=== PATIENT | female | born 1990 | race Caucasian/White ===

== ENCOUNTER 2024-01-16 11:25 | Inpatient (IN) | payer OTHER ==
[~2024-01-16] VITALS: Ht 170.2 cm; Wt 56.7 kg
[2024-01-16 12:26] VITALS: BP 103/74
[2024-01-16] MEDS ORDERED: BETAMETHASONE ACETATE,SOD PHOS 30 MG/5 ML ML IM ONE (12:30)
[2024-01-16] MEDS ORDERED: MAGNESIUM SULFATE IN WATER 100 ML IV SCH (12:30)
[2024-01-16] MEDS ORDERED: MAGNESIUM SULFATE IN WATER 500 ML IV SCH (12:30)
[2024-01-16] MEDS ORDERED: RINGERS SOLUTION,LACTATED 1,000 ML IV SCH (12:30)
[2024-01-16 13:23] LABS: HEMATOCRIT 36.2 % (36.0-45.00); HEMOGLOBIN 12.3 g/dL (12.0-15.00); MEAN CELL VOLUME 91.8 fL (80.00-100.00); MEAN CORPUSCULAR HEMOGLOBIN 31.2 pg (27.00-32.0); PLATELET COUNT 205 K/uL (150-450); RED BLOOD COUNT 3.95 M/uL (4.00-6.00); RED CELL DISTRIBUTION WIDTH 13.2 % (11.5-14.5)
[2024-01-16 13:26] LABS: PH,URINE 6.5 (5.0-8.0); URINE APPEARANCE Clear; URINE BILIRRUBIN Negative (NEGATIVE); URINE COLOR Yellow; URINE GLUCOSE Negative (NEGATIVE); URINE KETONE Negative (NEGATIVE); URINE LEUKOCYTE Large; URINE NITRATE Negative; URINE PROTEIN Negative (NEGATIVE)
[2024-01-16 13:27] LABS: URINE BACTERIA 2970.7 uL (0.0-1933); URINE BLOOD TRACES; URINE CAST 0.76 uL (0.0-1.40); URINE EPITHELIAL CELLS 55.5 uL (0.0-38.8); URINE RBC 41.2 uL (0.0-20.8); URINE WBC 386.3 uL (0.0-23.2)
[2024-01-16] MEDS ORDERED: PRENATAL + DHA1 EAC1 PO (13:50)
[2024-01-16 13:53] LABS: INR < 0.93; PARTIAL THROMBOPLASTIN TIME 27.1 SECONDS (22.0-34.0); PROTHROMBIN TIME 10.2 SECONDS (9.0-11.5)
[2024-01-16 15:22] VITALS: BP 101/62
[2024-01-16] MEDS ORDERED: CEFAZOLIN SODIUM 1,000 MG VIAL IV SCH (17:00)
[2024-01-16 19:41] VITALS: BP 99/60
[2024-01-16] MEDS ORDERED: ACETAMINOPHEN 325 MG TABLET PO PRN (21:00)
[2024-01-16] MEDS ORDERED: MORPHINE SULFATE 4 MG/ML CARTRIDGE IV ONE (21:30)
[2024-01-16 23:23] VITALS: BP 105/65
[2024-01-17 04:50] VITALS: BP 93/60
[2024-01-17 06:01] VITALS: BP 107/70; O2SAT 98
[2024-01-17] MEDS ORDERED: NIFEDIPINE 60 MG TAB.SA.OSM PO SCH (09:02)
[2024-01-17] MEDS ORDERED: NIFEDIPINE 60 MG TAB.SA.OSM PO STA (10:43)
[2024-01-17 10:51] VITALS: BP 101/64
[2024-01-17 11:22] VITALS: BP 104/66
[2024-01-17 12:00] VITALS: BP 106/69
[2024-01-17] MEDS ORDERED: BETAMETHASONE ACETATE,SOD PHOS 30 MG/5 ML ML IM NR (13:00)
[2024-01-17 17:05] VITALS: BP 95/59
[2024-01-18] VITALS: BP 90/60
[2024-01-18 07:39] VITALS: BP 97/58
[2024-01-18] MEDS ORDERED: GUAIFENESIN 600 MG TABLET.SA PO SCH (13:25)
[2024-01-18 14:29] VITALS: BP 97/62
[2024-01-18 16:00] VITALS: BP 97/60
[2024-01-19] VITALS: BP 99/62
[2024-01-19 08:00] VITALS: BP 115/61
[2024-01-19 12:00] VITALS: BP 98/64
[2024-01-19 16:00] VITALS: BP 100/65
== END 2024-01-19 16:53 | disposition home or self-care (01) | DRG 833 ==
LOC: NST 11:25 → LDR 12:19 → OB/GYN 01-17 10:58
PROVIDERS: ADMIT Obstetrics & Gynecology; ATTEND Obstetrics & Gynecology
PROC: 4A1HXCZ Monitoring of Products of Conception, Cardiac Rate, External Approach (ICD-10-PCS; principal; 2024-01-16)
DX: O26.893 Other specified pregnancy related conditions, third trimester (principal); R10.2 Pelvic and perineal pain; Z3A.31 31 weeks gestation of pregnancy; Z20.822 Contact with and (suspected) exposure to COVID-19

== ENCOUNTER 2024-02-06 09:20 | Outpatient (CLI) | payer OTHER ==
[~2024-02-06 09:20] MED LIST: PRENATAL + DHA1 EAC1 PO
== END 2024-02-06 11:25 | disposition home or self-care (01) ==
LOC: NST 09:20
PROVIDERS: ATTEND Obstetrics & Gynecology Maternal & Fetal Medicine
DX: Z34.83 Encounter for supervision of other normal pregnancy, third trimester (principal)

== ENCOUNTER 2024-02-13 10:19 | Inpatient (IN) | payer OTHER ==
[~2024-02-13] VITALS: Ht 170.2 cm; Wt 59.0 kg
[2024-02-20 19:27] VITALS: BP 124/68
[2024-02-20] MEDS ORDERED: RINGERS SOLUTION,LACTATED 1,000 ML IV SCH (19:45)
[2024-02-20] MEDS ORDERED: MORPHINE SULFATE 4 MG/ML VIAL IV PRN (19:45)
[2024-02-20 20:31] LABS: HEMATOCRIT 36.7 % (36.0-45.00); HEMOGLOBIN 12.4 g/dL (12.0-15.00); MEAN CELL VOLUME 91.3 fL (80.00-100.00); MEAN CORPUSCULAR HEMOGLOBIN 30.8 pg (27.00-32.0); MEAN CORPUSCULAR HGB CONC 33.8 g/dl (32.0-36.0); PLATELET COUNT 199 K/uL (150-450); RED BLOOD COUNT 4.02 M/uL (4.00-6.00); RED CELL DISTRIBUTION WIDTH 13.4 % (11.5-14.5)
[2024-02-20 20:45] LABS: INR < 0.93; PARTIAL THROMBOPLASTIN TIME 26.5 SECONDS (22.0-34.0); PROTHROMBIN TIME 9.8 SECONDS (9.0-11.5)
[2024-02-20 20:46] LABS: BILIRUBIN TOTAL 0.26 mg/dL (0.3-1.2); CREATININE SERUM 0.5 mg/dL (0.55-1.02); GFR 143.9; GLOBULINA 3.9 G/DL (2.4-3.5); POTASSIUM 3.64 mEq/L (3.5-5.1); TOTAL PROTEIN 6.9 gm/dL (6.4-8.2)
[2024-02-20 22:08] VITALS: BP 109/64
[2024-02-20] MEDS ORDERED: OXYTOCIN 500 ML IV SCH (22:45)
[2024-02-20] MEDS ORDERED: CHLORHEXIDINE GLUCONATE 120 ML BOTTLE TOP SCH (23:45)
[2024-02-20] MEDS ORDERED: OXYTOCIN 1,000 ML IV SCH (23:45)
[2024-02-20] MEDS ORDERED: IBUprofen 400 MG TABLET PO PRN (23:45)
[2024-02-21] VITALS (7 sets, daily range): BP systolic 90–123; BP diastolic 60–81
[2024-02-21] MEDS ORDERED: ERYTHROMYCIN BASE OPHT 1GM EACH TUBE OP ONE (02:30)
[2024-02-21 05:39] LABS: HEMATOCRIT 35.2 % (36.0-45.00); HEMOGLOBIN 12.3 g/dL (12.0-15.00); MEAN CELL VOLUME 91.4 fL (80.00-100.00); MEAN CORPUSCULAR HEMOGLOBIN 31.8 pg (27.00-32.0); MEAN CORPUSCULAR HGB CONC 34.8 g/dl (32.0-36.0); PLATELET COUNT 180 K/uL (150-450); RED BLOOD COUNT 3.85 M/uL (4.00-6.00); RED CELL DISTRIBUTION WIDTH 13.2 % (11.5-14.5)
[2024-02-22] VITALS: BP 103/68
[2024-02-22 08:33] VITALS: BP 101/60
== END 2024-02-22 17:49 | disposition home or self-care (01) | DRG 807 ==
LOC: LDR 02-20 19:35 → OB/GYN 02-21 01:32
PROVIDERS: Obstetrics & Gynecology; ADMIT Obstetrics & Gynecology; ATTEND Obstetrics & Gynecology
PROC: 10E0XZZ Delivery of Products of Conception, External Approach (ICD-10-PCS; principal; 2024-02-20)
PROC: 4A1HXCZ Monitoring of Products of Conception, Cardiac Rate, External Approach (ICD-10-PCS; 2024-02-20)
DX: O60.14X0 Preterm labor third trimester with preterm delivery third trimester, not applicable or unspecified (principal); Z37.0 Single live birth; Z3A.36 36 weeks gestation of pregnancy; Z20.822 Contact with and (suspected) exposure to COVID-19